=== PATIENT | female | born 2000 | race Caucasian/White ===

== ENCOUNTER 2022-06-25 08:04 | Emergency (ER) | payer OTHER, BC, SELFPAY ==
--- NOTE | 2022-06-25 08:08 | ED.URI ---
HPI - URI/Sore Throat General Chief Complaint: Upper Respiratory Infection Stated Complaint: ear pain/sre throat Time Seen by Provider: 06/25/22 08:08 Source: patient Mode of arrival: ambulatory Limitations: no limitations History of Present Illness HPI Narrative: Judi is a 21-year-old female patient presenting to the clinic today with complaints of runny nose, left ear pain, and sore throat. She reports his left ear pain and runny nose started approximately 1 week ago however her sore throat began yesterday. She rates her sore throat an 8/10 and her left ear pain as 7/10. She denies any chills but has had a low-grade temperature of 100.3? FCamila MATHIAS elicited complaint: sore throat, nasal congestion and other (Left ear pain) Related Data Allergies Allergy/AdvReac Type Severity Reaction Status Date / Time No Known Allergies Allergy Verified 06/25/22 08:18 Review of Systems Review of Systems: Pertinent positives per HPI. Patient denies any chills, rash, headache, visual changes, dizziness, cough, shortness of breath, chest pain, palpitations, nausea, vomiting, diarrhea, constipation, abdominal pain, or any urinary issues. PMFSH Comments At the time of my signature, I reviewed and agree with the nursing past medical, surgical, social, and family history. There is no relevant family history pertinent to the patient complaint. Exam Narrative: General: Well-developed, obese, in no apparent distress Head: Normocephalic, atraumatic Eyes: Pupils equally round and reactive to light bilaterally, EOM intact, sclera and conjunctive clear, no discharge, lids normal Ears: TMs intact, congested, mild bulging, ear canals clear, no drainage, grossly hearing normal. Nose: Nares patent, clear nasal discharge, no inflammation, no sinus tenderness. Mouth: Oral pharynx without lesions or masses, good dentition, MMM. Oropharynx with bilateral tonsillar enlargement with white exudate to the left tonsil. Neck: Supple, trachea midline, mild enlargement of anterior cervical nodes, no thyroid masses or goiter palpable. Cardio: Regular rate and rhythm, s1 and s2 normal, no murmur appreciated. Resp: Clear to auscultation bilaterally, no rhonchi, rales, wheezing or rubs Course Course Emergency Course: Portions of this record may have been created with voice recognition software. Level of Care: Express Care Visit Vital Signs Vital signs: Vital signs reviewed MDM - URI/Sore Throat MDM Narrative Medical decision making narrative: At the time of visit patient is resting comfortably on exam table. Strep screen was obtained in the clinic today and was negative in the clinic today. I suspect patient has URI/pharyngitis/eustachian tube dysfunction. Prescription for prednisone was sent to the pharmacy and supportive measures were discussed with the patient she voiced understanding of discharge instructions. We will send strep for culture. Differential Diagnosis Differential diagnosis: Likely upper respiratory infection, otitis media, sinusitis, viral infection, bronchitis, influenza, pharyngitis and other (COVID) Discharge Plan Discharge Clinical Impression: Acute dysfunction of both eustachian tubes Upper respiratory infection Qualifiers: URI type: unspecified viral URI Qualified Code(s): J06.9 - Acute upper respiratory infection, unspecified Pharyngitis Qualifiers: Pharyngitis/tonsillitis etiology: unspecified etiology Qualified Code(s): J02.9 - Acute pharyngitis, unspecified Patient Disposition: Home, Self-Care Condition: Stable Instructions: Antibiotic Form, Pharyngitis (ED), Upper Respiratory Infection (ED), Earache (ED), Viral Syndrome (ED) Additional Instructions: Strep screen was negative in the clinic today. We will send strep for culture if this comes back positive we will contact you in place you on antibiotics at that time Take prescription medications only as prescribed-prednisone Increase fluids and stay well hydr
[2022-06-25 08:18] VITALS: BP 131/81; PULSE 81; RESP 16; TEMP 36.9; O2SAT 99
== END 2022-06-25 08:42 | disposition home or self-care (01) ==
PROVIDERS: Emergency Provider Nurse Practitioner Family; PCP Nurse Practitioner Adult Health
DX: H69.93 Unspecified Eustachian tube disorder, bilateral (principal); J06.9 Acute upper respiratory infection, unspecified; J02.9 Acute pharyngitis, unspecified
CPT/HCPCS: 87081; 87880; 99213; G0463

== ENCOUNTER 2023-05-18 14:50 | Emergency (ER) | payer OTHER, SELFPAY ==
[2023-05-18 15:10] VITALS: BP 143/78; PULSE 91; RESP 16; TEMP 38.2; O2SAT 99
--- NOTE | 2023-05-18 15:41 | ED.URI ---
HPI - URI/Sore Throat General Chief Complaint: Upper Respiratory Infection Stated Complaint: lymph nodes swollen in neck,throat irritated Time Seen by Provider: 05/18/23 15:42 History of Present Illness HPI Narrative: 22-year-old female presented for complaint of sore throat, swollen uvula and nasal congestion. Onset yesterday. She also reports the right neck and right ear is sore. Taking Sudafed for symptoms. States she has had several episodes of tonsillitis over the past year, testing negative for strep and mono. She states she has had bronchitis a month ago, and has continued to have a cough. She denies shortness of breath, wheezing, nausea, vomiting, diarrhea, fevers or chills. Related Data Home Medications Medication Instructions Recorded Confirmed escitalopram oxalate 10 mg tablet 10 mg PO DAILY 05/18/23 05/18/23 trazodone 50 mg tablet 50 mg PO DAILY 05/18/23 05/18/23 Allergies Allergy/AdvReac Type Severity Reaction Status Date / Time No Known Allergies Allergy Verified 05/18/23 15:12 Review of Systems Review of Systems: CONSTITUTIONAL: Denies body aches, fever, chills, or sweats. EYES: Denies visual changes, redness, or discharge. ENT: Reports rhinorrhea, congestion, sore throat, right otalgia. CARDIOVASCULAR: Denies chest pain, palpitations, or edema. RESPIRATORY: Denies dyspnea. GASTROINTESTINAL: Denies abdominal pain, nausea, vomiting, or diarrhea. SKIN: Denies rash, itching, or wounds. MUSCULOSKELETAL: Denies back pain, joint pain, or myalgia. NEUROLOGIC: Denies headache PMFSH Past Medical History Medical History (Updated 05/18/23 @ 16:11 by Rosalinda Fatima, WILDLIFE CONTROL OPERATOR) No pertinent past medical history Exam Narrative: GENERAL: well-appearing, no acute distress. EYES: conjunctivae clear ENT: Mucous membranes moist. TMs pearly lennon with normal light reflex bilaterally; no tragal tenderness. Oropharynx mildly erythematous without lesions. Tonsils enlarged 3+ and without exudate, mild uvula swelling. No drooling, no hoarseness, no trismus, uvula midline. No tripod positioning, hot potato voice, or soft palate swelling. NECK: Supple. No lymphadenopathy CHEST: Clear to auscultation, breath sounds equal. No respiratory distress, speaks in full sentences. HEART: Regular rate and rhythm. No murmur heard. SKIN: Warm, dry, no rash. NEURO: Alert and oriented x3. Course Course Emergency Course: Patient is aware of diagnosis, understands and agrees to treatment plan. Anticipatory guidance given. Patient agrees to follow-up as directed and is aware of reasons to seek care at the emergency department. Portions of this record may have been created with voice recognition software Level of Care: Express Care Visit Vital Signs Vital signs: Vital Signs Temperature 100.7 F H 05/18/23 15:10 Pulse Rate 91 05/18/23 15:10 Respiratory Rate 16 05/18/23 15:10 Blood Pressure 143/78 H 05/18/23 15:10 Pulse Oximetry 99 05/18/23 15:10 Oxygen Delivery Room Air 05/18/23 15:10 Temperature 100.7 F H 05/18/23 15:10 Pulse Rate 91 05/18/23 15:10 Respiratory Rate 16 05/18/23 15:10 Blood Pressure 143/78 H 05/18/23 15:10 Pulse Oximetry 99 05/18/23 15:10 Oxygen Delivery Room Air 05/18/23 15:10 MDM - URI/Sore Throat MDM Narrative Medical decision making narrative: Neg strep and mono results reviewed with pt. Advise supportive treatments. Patient is appropriate for outpatient treatment and follow-up. Differential Diagnosis Differential diagnosis: Likely upper respiratory infection, otitis media, sinusitis, viral infection, bronchitis, influenza and pharyngitis Lab Data Labs: Strep Screen Presumptive Negative *(Reference Range: Negative)* Discharge Plan Discharge Clinical Impression: Viral infection Patient Disposition: Home, Self-Care Condition: Stable Instructions: Antibiotic Form,
== END 2023-05-18 16:15 | disposition home or self-care (01) ==
PROVIDERS: Emergency Provider Nurse Practitioner Family; PCP Nurse Practitioner Family
DX: B34.9 Viral infection, unspecified (principal); Z79.899 Other long term (current) drug therapy
CPT/HCPCS: 36416; 86308; 87081; 87880; 99213; G0463

== ENCOUNTER 2024-10-11 15:17 | Outpatient (CLI) | payer OTHER, SELFPAY ==
--- NOTE | ~2024-10-11 | US_ITS ---
EXAM: PELVIC ULTRASOUND HISTORY: PELVIC AND PERINEAL PAIN COMPARISON: None. FINDINGS: UTERUS: 8.5 x 5.4 x 4.0 cm. The uterus is anteverted and anteflexed. The endometrial complex measures 10 mm. RIGHT OVARY: The right ovary is unremarkable in echogenicity and size measuring 2.6 x 3.3 x 2.0 cm. Dopplerable flow is identified. LEFT OVARY: The left ovary is unremarkable in echogenicity and size measuring 3.1 x 2.7 x 1.3 cm Dopplerable flow is identified. No free fluid is identified within the pelvis. IMPRESSION: Unremarkable sonographic evaluation of the female pelvis, as detailed above. Reviewed, dictated and finalized at location A.
== END 2024-10-11 15:18 | disposition home or self-care (01) ==
PROVIDERS: PCP Advanced Practice Midwife; Visit Provider Advanced Practice Midwife
DX: R10.2 Pelvic and perineal pain (principal)
CPT/HCPCS: 76830; 76856